=== PATIENT | male | born 1985 | race Native Hawaiian/Other Pacific Islander ===

== ENCOUNTER 2024-04-14 14:26 | Emergency (ER) | payer OTHER, SELFPAY ==
--- NOTE | ~2024-04-14 | XR_ITS ---
EXAMINATION: XR knee LT min 4V DATE: 04/14/2024 15:02 INDICATION: Medial left knee injury and pain. TECHNIQUE: 4 views of left knee were obtained. COMPARISON: None. FINDINGS: Alignment is normal. No fracture. Joint spaces are normal. No knee joint effusion. There is superficial infrapatellar soft tissue swelling. IMPRESSION: 1. No fracture. Reviewed, dictated and finalized at location A. UTER OPERATIONS TECHNICIAN IMPRESSION: 1. No fracture.
--- NOTE | ~2024-04-14 | XR_ITS ---
EXAM: XR finger 5th LT min 2V DATE: 04/14/2024 15:03 HISTORY: fell, finger pain/swelling DIP joint Lt 5th finger . COMPARISON: None available. FINDINGS: Normal mineralization. No fracture or dislocation. There is hyperextension of the fifth DI P joint. No lytic or blastic lesion. Joint spaces and physes are maintained. No erosion or periosteal change. Soft tissues within normal limits. IMPRESSION: No fracture or dislocation of the left fifth digit. Hyperextension of the left fifth PIP joint, as can be seen with tenderness injury or artifact of positioning. Reviewed, dictated and finalized at location K. GN COORDINATOR
--- NOTE | ~2024-04-14 | XR_ITS ---
EXAMINATION: XR knee RT min 4V DATE: 04/14/2024 15:03 INDICATION: Right knee injury and pain. TECHNIQUE: 4 views of right knee were obtained. COMPARISON: None. FINDINGS: Alignment is normal. No fracture. Joint spaces are normal. No knee joint effusion. There is superficial infrapatellar soft tissue swelling. IMPRESSION: 1. No fracture. Reviewed, dictated and finalized at location A. D CARE LEADER IMPRESSION: 1. No fracture.
--- NOTE | 2024-04-14 14:31 | ED.LOWEXIN ---
HPI - Extremity Injury (Lower) General Chief Complaint: Extremity Injury, Lower Stated Complaint: Injured Knee Time Seen by Provider: 04/14/24 14:40 Source: patient Mode of arrival: ambulatory Limitations: no limitations History of Present Illness HPI Narrative: Patient is a 38-year-old male presenting to the clinic today with complaints of bilateral knee injury and just occurred prior to arrival. He reports he was playing pickle ball when stretched his legs and may have overstretched. His knees went inward and he fell- when he fell hefelt/heard a crack to bilateral medial knee. Having pain to bilateral medial knees with an abrasion to the left medial knee. Related Data Home Medications ?Medication ?Instructions ?Recorded ?Confirmed ?Last Taken ?Type emtricitabine 200 mg-tenofovir 1 tablet PO DAILY 04/14/24 04/14/24 Unknown History alafenamide fumarate 25 mg tablet (Descovy) Allergies Allergy/AdvReac Type Severity Reaction Status Date / Time No Known Allergies Allergy Verified 04/14/24 14:33 Review of Systems Review of Systems: Pertinent positives per HPI. Patient denies any fever, chills, rash, headache, visual changes, dizziness, cough, shortness of breath, chest pain, palpitations, nausea, vomiting, diarrhea, constipation, abdominal pain, or any urinary issues. PMFSH Comments At the time of my signature, I reviewed and agree with the nursing past medical, surgical, social, and family history. There is no relevant family history pertinent to the patient complaint. Exam Narrative: General: Well-developed, well nourished, in no apparent distress Head: Normocephalic, atraumatic. Cardio: Regular rate and rhythm, s1 and s2 normal, no murmur appreciated. Resp: Clear to auscultation bilaterally, no rhonchi, rales, wheezing or rubs. Musculoskeletal: No deformity, swelling and tenderness to the left 5th finger, abrasion to the left medial knee, tender to palpation over bilateral medial knee, pain with valgus/varus testing, pain with flexion/extension of the left 5th finger, grossly normal range of motion, muscle strength strong and equal, peripheral pulse strong, no edema, no cyanosis, normal gait and station Course Course Emergency Course: Portions of this record may have been created with voice recognition software. Level of Care: Express Care Visit Vital Signs Vital signs: Vital Signs Temperature 36.7 C 04/14/24 15:11 Pulse Rate 86 04/14/24 15:11 Respiratory Rate 16 04/14/24 15:11 Blood Pressure 117/85 04/14/24 15:11 Pulse Oximetry 100 04/14/24 15:11 Temperature 36.7 C 04/14/24 15:11 Pulse Rate 86 04/14/24 15:11 Respiratory Rate 16 04/14/24 15:11 Blood Pressure 117/85 04/14/24 15:11 Pulse Oximetry 100 04/14/24 15:11 Vital signs reviewed MDM - Extremity Injury (Lower) MDM Narrative Medical decision making narrative: At the time of visit patient is resting comfortably on the exam table. Patient appears to be nontoxic. Diagnostics: X-ray of the left 5th finger, right knee, and left knee are all negative for any fracture or malalignment. Suspecting a hyperextension injury of the left 5th finger and some soft tissue swelling over the inferior patellar area bilaterally Plan: I suspect patient has localized swelling and pain to the bilateral knee and hyperextension injury to the left 5th finger. Finger splint was applied. Offered Bala wraps for his knees and he declined. Supportive measures were discussed with the patient and they voiced understanding discharge instructions and agrees to treatment plan. Return precautions reviewed Differential Diagnosis Differential diagnosis: Likely acute internal derangement of knee (knee strain/sprain, abrasion, contusion,finger sprain/finger fracture, Ligament injury) and other Imaging Data Radiologist's impression: ITS Impressions Knee X-Ray 04/14/24 15:04 IMPRESSION: 1. No fracture. Finger X-Ray 04/14/24 15:05 IMPRESSION: No fracture or dislocation of the left fifth digit. Hyperextension of the left fifth PIP joint, as can be seen with tenderness injury or artifact of positioning. Knee X-Ray 04/14/24 15:05 IMPRESSION: 1. No fracture. Discharge Plan Discharge Clinical Impression: Localized soft tissue swelling Acute knee pain Qualifiers: Laterality: bilateral Qualified Code(s): M25.561 - Pain in right knee Patient Disposition: Home, Self-Care Condition: Stable Instructions: Antibiotic Form, Knee Sprain (ED), Knee Sprain (DC), Finger Sprain (ED), Knee Pain (ED) Additional Instructions: X-ray show infrapatellar soft tissue swelling bilaterally. No sign fracture, malalignment, or effusion. Rest, ice, elevate, and wear bala wrap as directed Tylenol/motrin for pain as discussed. Gradually bear weight No running or sports until healed. Follow up with your PCP if symptoms persist more than 1 week. Patient Language: Stateless Prescriptions: No Action Descovy 200-25 mg tablet 1 tablet PO DAILY Follow-up/Referrals: PHYSICIAN,PRODUCT INSPECTION SUPERVISOR [Primary Care Provider] - Time of Disposition: 15:13 Quality NIHSS Nursing Documentation ED NIHSS nursing documentation: reviewed/agree
[2024-04-14 15:11] VITALS: BP 117/85; PULSE 86; RESP 16; TEMP 36.7; O2SAT 100
== END 2024-04-14 15:17 | disposition home or self-care (01) ==
PROVIDERS: Emergency Provider Nurse Practitioner Family
DX: M79.89 Other specified soft tissue disorders (principal); M25.562 Pain in left knee; M25.561 Pain in right knee
CPT/HCPCS: 29130; 73140; 73564; 99204; G0463